=== PATIENT | male | born 1990 | race Two or more races ===

== ENCOUNTER 2017-10-18 12:27 | Emergency (ER) | payer OTHER ==
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
--- NOTE | 2017-10-18 12:35 | NUR ---
Patient left without being seen by ER Physician
== END 2017-10-18 12:52 | disposition left against medical advice (07) ==
LOC: ER 12:29
DX: Z53.21 Procedure and treatment not carried out due to patient leaving prior to being seen by health care provider (principal)